=== PATIENT | female | born 1990 | race African-American/Black ===

== ENCOUNTER 2020-07-07 02:30 | Inpatient (IN) | payer OTHER ==
--- NOTE | 2020-07-07 04:05 | PD.OB.PROG ---
Past Medical History - Primary Care Physician Documenting Provider Type: Laborist - Admission Chief Complaint: abdominal pain, leg pain - Nursing Documentation Nursing Documentation Reviewed: Yes - Past Medical History ...Para: 2 ... Weeks Gestation by Dates: 31 ...EDC by Dates: 09/02/20 - Past Surgical History Past Surgical History: Yes: Cystectomy - Smoking History Smoking history: Never smoked Have you smoked in the past 12 months: No - Alcohol/Substance Use Hx Alcohol Use: No Review of Systems - Review of Systems Constitutional: reports: No Symptoms Eyes: reports: No Symptoms HENT: reports: No Symptoms Neck: reports: No Symptoms Cardiovascular: reports: No Symptoms Respiratory: reports: No Symptoms Gastrointestinal: reports: Abdominal Pain Genitourinary: reports: Pain Breasts: reports: No Symptoms Reported Musculoskeletal: reports: No Symptoms, Extremity Pain Integumentary: reports: No Symptoms Neurological: reports: No Symptoms Endocrine: reports: No Symptoms Hematology/Lymphatic: reports: No Symptoms Psychiatric: reports: No Symptoms Physical Exam - Obstetrical Constitutional: Yes: Well Nourished, No Distress, Calm Eyes: Yes: WNL, Conjunctiva Clear, EOM Intact HENT: Yes: WNL, Atraumatic, Normocephalic Neck: Yes: WNL, Supple, Trachea Midline Cardiovascular: Yes: Regular Rate and Rhythm - Abdominal Exam/OB Fundal Height: 32 Number of Fetuses: Single Presentation: Vertex Contractions: Yes Regularity: Irregular Monitor Mode: External Heart Rate Location: [facility] Category: I Accelerations: Uniform Decelerations: None - Vaginal Exam/OB Vaginal Exam Deferred: No Vaginal Bleeding: No Dilatation (cm): 2-3 Effacement (%): 70 Amniotic Membrane Status: Intact Presentation: Vertex/Position Station: -2 - Physical Exam Musculoskeletal: Yes: WNL Extremities: Yes: Calf Tenderness Edema: No Assessment/Plan 29yo P2 at 31.6 weeks with lower abdominal pain, leg pain left >right -advanced cervical exam for gestational age; contractions/labor findings discussed with primary ob recommended betamethasone for lung maturity penicillin for gbs prophylaxis tocolysis sono for well being doppler lower extremity to r/o DVT
[2020-07-07] MEDS ORDERED: MAGNESIUM 4GM/H20 - 4 GM/100 ML IVPB IVPB ONE ×2 (05:17→05:20)
[2020-07-07] MEDS ORDERED: AMPICILLIN SODIUM 2 GM VIAL ONE (05:17)
[2020-07-07] MEDS ORDERED: MAGNESIUM SULFATE 20GM/500ML - 20 GM/500 ML INFUS.BAG ONE (05:17)
[2020-07-07] MEDS ORDERED: AMPICILLIN - 2 GM in DEXTROSE 5%-WATER 100 ML IVPB ONE (05:30)
[2020-07-07 05:37] LABS: URINE APPEARANCE CLEAR; URINE BILIRUBIN NEGATIVE (NEGATIVE); URINE COLOR YELLOW; URINE GLUCOSE (UA) NEGATIVE (NEGATIVE); URINE KETONE NEGATIVE (NEGATIVE); URINE LEUK ESTERASE NEGATIVE (NEGATIVE); URINE NITRITE NEGATIVE (NEGATIVE); URINE PROTEIN NEGATIVE (NEGATIVE)
[2020-07-07 05:41] LABS: BASO % 0.3 % (0-2.0); EOS % 0.6 % (0-4.5); HEMATOCRIT 35.6 % (32.4-45.2); HEMOGLOBIN 11.8 GM/dL (10.7-15.3); LYMPH % 20.2 % (8-40); MCH 28.5 pg (25.7-33.7); MCHC 33.1 g/dl (32.0-36.0); MEAN CELL VOLUME 86.2 fl (80-96); MEAN PLT VOLUME 10.5 fl (7.5-11.1); MONO % 7.5 % (3.8-10.2); NEUT % 71.4 % (42.8-82.8); PLATELET COUNT 170 K/MM3 (134-434); RBC 4.13 M/mm3 (3.60-5.2); RDW 13.5 % (11.6-15.6); WHITE BLOOD COUNT 11.3 K/mm3 (4.0-10.0)
[2020-07-07 05:48] LABS: INR 1.01 (0.83-1.09); PROTHROMBIN TIME (PATIENT) 11.9 SEC (9.7-13.0)
[2020-07-07 05:50] LABS: ACTIVATED PTT 25.8 SECONDS (25.2-36.5)
[2020-07-07] MEDS ORDERED: MAGNESIUM SULFATE 20GM/500ML - 20 GM/500 ML INFUS.BAG IVPB SCH (05:50)
[2020-07-07] MEDS ORDERED: BETAMET ACET/BETAMET NA PH 30 MG/5 ML VIAL ONE (06:00)
[2020-07-07 06:14] LABS: BLOOD UREA NITROGEN 4.1 mg/dL (7-18); CALCIUM 9.4 mg/dL (8.5-10.1); CREATININE 0.6 mg/dL (0.55-1.3); POTASSIUM 3.8 mmol/L (3.5-5.1)
[2020-07-07 06:18] LABS: COCAINE, UR NEGATIVE ng/ml (CUTOFF=300); OPIATES, URI NEGATIVE ng/ml (CUTOFF=300); URINE BARBITURATES NEGATIVE ng/ml (CUTOFF=200)
[2020-07-07] MEDS ORDERED: DEXTROSE 5%-LACTATED RINGERS 1,000 ML IV SCH (06:20)
[2020-07-07 06:41] LABS: METHADONE, UR NEGATIVE ng/ml (CUTOFF=300); PHENCYCLIDINE,URINE NEGATIVE ng/ml (CUTOFF=25); URINE AMPHETAMINES NEGATIVE ng/ml (CUTOFF=500); URINE BENZODIAZEPINES NEGATIVE ng/ml (CUTOFF=200)
[2020-07-07 07:12] VITALS: BMI 25.6
[2020-07-07] MEDS ORDERED: BETAMET ACET/BETAMET NA PH 30 MG/5 ML VIAL IM ONE (08:45)
[2020-07-07] MEDS ORDERED: AMPICILLIN - 1 GM in SODIUM CHLORIDE 100 ML IVPB SCH (09:30)
[2020-07-07] MEDS ORDERED: AMPICILLIN SODIUM 1 GM VIAL ONE (09:42)
--- NOTE | 2020-07-07 09:53 | HP ---
Past Medical History - Admission Chief Complaint: p1 at 31+6 w gestation admited with uterine CTX for few hours , No vaginal bleeding , no ROM , occasional c/O of umbness of LL , + FM History Source: Patient Limitations to Obtaining History: No Limitations - Past Medical History ...: 2 ...Para: 1 ...Term: 1 ...: 0 ...Spon : 0 ...Induced : 0 ...Living Children: 0 ...Multiple Gestation: 0 ...LMP: 11/30/19 ... Weeks Gestation by Dates: ...EDC by Dates: 09/02/20 ...EDC by Sono: 07/03/20 Additional OB History: prior vaginal delivery term 4 years ago , no complication - Past Surgical History Past Surgical History: Yes: Cystectomy Hx Myomectomy: No Hx Transabdominal Cerclage: No - Smoking History Smoking history: Never smoked Have you smoked in the past 12 months: No - Alcohol/Substance Use Hx Alcohol Use: No - Social History History of Recent Travel: No Home Medications - Allergies Allergies/Adverse Reactions: Allergies Allergy/AdvReac Type Severity Reaction Status Date / Time No Known Allergies Allergy Verified 07/07/20 05:34 - Home Medications Home Medications: Ambulatory Orders Tablet 1 tablet PO DAILY 10/31/15 Folic Acid 1 mg PO DAILY 07/07/20 Physical Exam - Maternity Vital Signs: Vital Signs Temperature 97.8 F 07/07/20 07:05 Pulse Rate 93 H 07/07/20 07:05 Respiratory Rate 18 07/07/20 07:05 Blood Pressure 118/74 07/07/20 07:05 O2 Sat by Pulse Oximetry (%) - Labs Lab Results: CBC, BMP 07/07/20 04:40 07/07/20 04:40
[2020-07-07 10:09] VITALS: BP 128/78; PULSE 96; TEMP 98.1
--- NOTE | 2020-07-07 10:16 | PN ---
Progress Note (short form) - Note Progress Note: 29 y old p1 at 31+6 w geatation admited C/o of CTx for several hours , on admision Exam 1-2 cm , repeat cervical Eaxm 2-3 cm/ intact / soft . 60% / -1 / VTX . irregular CTx Q 5=7 min. 128/78 .P 96 Temp 98.1 FH 32 weeks . palpable irregular CTx FHr 130/ min = mod. variability . + accelartion , no dec. Pt. receiving MGSO4 tocolytics . received betamethasone 12 mg IM Receiving ampicillin . WBC 11k , platelets 170K UA neg . doppler studies ,for DVT negative . due to labor at 31 + 6 weeks will transfere to [facility] [place] [facility] , Dr. Altman accepted the transfere . Risk and benefit of transfere explained to the patient , consent signed obtained and witness .
== END 2020-07-07 10:25 | disposition short-term general hospital (02) | DRG 563 ==
LOC: JDEL 02:30 → JLDR 03:50
PROVIDERS: ADMIT Family Medicine; ATTEND Family Medicine
DX: O60.03 Preterm labor without delivery, third trimester (principal); Z3A.31 31 weeks gestation of pregnancy
CPT/HCPCS: 36415; 80048; 80307; 81003; 83735; 85025; 85610; 85730; 86780; 86850; 86900; 86901; 87086; 87340; 87389; 93970-TC; 96372; U0003